=== PATIENT | female | born 1960 | race Hispanic/Latino ===

== ENCOUNTER 2018-03-02 06:49 | Observation (INO) | payer BC ==
--- NOTE | 2018-03-02 07:36 | ED PDOC ---
Upper Extremity Pain/Injury Time Seen by Provider: 03/02/18 07:09 Chief Complaint (Nursing): Upper Extremity Problem/Injury Chief Complaint (Provider): Upper Extremity Problem/Injury History Per: Patient History/Exam Limitations: no limitations Onset/Duration Of Symptoms: Other (today morning ) Current Symptoms Are (Timing): Still Present Exacerbating Factor(s): Movement Additional Complaint(s): Salome Cooley is a 58 year old female with a past medical history of hyperthyroidism and sinusitis, who presents to the emergency department after sustaining a fall on her outstretched left hand while walking this morning. Patient says she has pain to her left wrist and proximal hand that increases with movement. Patient is right hand dominant and denies any head or neck injuries, numbness, or weakness. PMD: Bree Harding Past Medical History Reviewed: Historical Data, Nursing Documentation, Vital Signs Vital Signs: Last Vital Signs Temp 97.4 F L 03/02/18 07:10 Pulse 86 03/02/18 07:10 Resp 18 03/02/18 07:10 BP 115/81 03/02/18 07:10 Pulse Ox 96 03/02/18 07:10 - Medical History PMH: Hyperthyroidism Other PMH: Sinusitis - Surgical History Surgical History: Appendectomy, Cholecystectomy, Tonsillectomy - Family History Family History: States: Unknown Family Hx - Home Medications Home Medications: Ambulatory Orders Medication Instructions Recorded Cholecalciferol (Vitamin D3) 2,000 unit PO DAILY 03/02/18 [Vitamin D3] Cyanocobalamin [Vitamin B12 1000 1 tab PO .2X/WK 03/02/18 mcg Tab] Lansoprazole [Prevacid] 30 mg PO DAILY PRN 03/02/18 Multivitamin [Multi-Vitamin Daily] 1 tab PO DAILY 03/02/18 Prasterone (Dhea) [Dhea] 1 cap PO DAILY 03/02/18 Thyroid [[place] Thyroid] 60 mg PO DAILY 03/02/18 Turmeric Root Extract [Turmeric] 1 cap PO DAILY 03/02/18 - Allergies Allergies/Adverse Reactions: Allergies Allergy/AdvReac Type Severity Reaction Status Date / Time doxycycline Allergy RASH Verified 03/02/18 07:10 tetracycline Allergy RASH Verified 03/02/18 07:10 Review of Systems ROS Statement: Except As Marked, All Systems Reviewed And Found Negative Musculoskeletal: Positive for: Hand Pain (Left hand and wrist pain) Neurological: Negative for: Weakness, Numbness Physical Exam - Reviewed Nursing Documentation Reviewed: Yes Vital Signs Reviewed: Yes - Physical Exam Appears: Positive for: Non-toxic, No Acute Distress Head Exam: Positive for: ATRAUMATIC, NORMOCEPHALIC Neck: Positive for: Normal, Painless ROM, Supple Respiratory: Positive for: Normal Breath Sounds. Negative for: Respiratory Distress Extremity: Positive for: Normal ROM (of lower extremities ), Tenderness (left wrist tenderess), Swelling (left wrist), Other (left shoulder and elbow non tender) Neurologic/Psych: Positive for: Alert, Oriented (x3). Negative for: Motor/Sensory Deficits - Laboratory Results Result Diagrams: 03/02/18 09:15 03/02/18 09:15 - ECG ECG: Positive for: Interpreted By Ga ECG Rhythm: Positive for: Sinus Bradycardia, Nonspecific Changes Rate: 59 O2 Sat by Pulse Oximetry: 96 (RA) Pulse Ox Interpretation: Normal - Radiology X-Ray: Interpreted by Ga X-Ray Interpretation: No Acute Disease (CXR) Medical Decision Making Medical Decision Making: Initial Time: 07:14 Initial Impression: Foosh fall on outstretched hand Initial Plan: Work up for traumatic foosh fall on outstretched hand and initiate pain control --Toradol 15 mg IM --Left hand and wrist X-ray --Chest X-ray Time: 11:22 Left hand x-ray FINDINGS: BONES: Comminuted fracture of the distal radius is appreciate with impaction. The fracture appears articular. No dislocation or subluxation. Transverse fracture through the ulnar styloid is appreciated, essentially nondisplaced. JOINTS: [id number] degenerative changes seen throughout the radiocarpal, carpal carpal and metacarpal phalangeal joints diffusely. SOFT TISSUES: Normal. OTHER FINDINGS: None. IMPRESSION: Left hand fracture identified. Comminuted fractures of the distal radius and ulna are identified. Time: 11:25 Left wrist X-ray FINDINGS: BONES: Comminuted articular fracture distal radius with volar angulation. Nondisplaced ulnar styloid fracture. Carpal bones appear intact nevertheless without fracture including the navicular bone. No destructive bony lesion appreciated. Local soft tissue edema appears moderate at the fracture sites. No subluxation or dislocation. JOINTS: As above. SOFT TISSUES: As above. OTHER FINDINGS: None. IMPRESSION: Comminuted articular fracture with volar angulation of the distal left radius without dislocation. No carpal bone fracture appreciated. Ulnar styloid fracture nondisplaced. Time: 11:32 Chest X-ray FINDINGS: LUNGS: No active pulmonary disease. PLEURA: No significant pleural effusion identified, no pneumothorax apparent. CARDIOVASCULAR: No aortic atherosclerotic calcification present. Normal cardiac size. No pulmonary vascular congestion. OSSEOUS STRUCTURES: No significant abnormalities. VISUALIZED UPPER ABDOMEN: Normal. OTHER FINDINGS: None. IMPRESSION: No acute cardiopulmonary disease appreciated. XRays wrist/ hand read by me as comminuted distal radius fracture Patient adamantly requested orthopedist who has office in [place] as she does not drive. Dr Okeefe contacted, he saw patient in ED and he states will need ORIF. Volar splint placed by tech confirmed by Preop labs, EKG, CXR ordered Admit Obs Dr Bradley Newell Attestation: Documented by Phil Lemos, acting as a scribe for Chin Nam III, DO. Provider Scribe Attestation: All medical record entries made by the Scribe were at my direction and personally dictated by me. I have reviewed the chart and agree that the record accurately reflects my personal performance of the history, physical exam, me dical decision making, and the department course for this patient. I have also personally directed, reviewed, and agree with the discharge instructions and disposition. Disposition - Disposition Condition: FAIR
[2018-03-02 10:01] LABS: BASO % 0.3 % (0.0-2.0); EOS # 0.1 K/uL (0.0-0.7); EOS % 0.7 % (0.0-4.0); LYMPH # 1.3 K/uL (1.0-4.3); LYMPH % 15.1 % (20.0-40.0); MEAN CELL VOLUME 93.1 fl (81.0-99.0); MEAN CORPUSCULAR HGB CONC 33.3 g/dL (33.0-37.0); MEAN PLATELET VOLUME 9.3 fl (7.2-11.7); MONO # 0.5 K/uL (0.0-0.8); MONO % 5.4 % (0.0-10.0); NEUT # 6.6 K/uL (1.8-7.0); NEUT % 78.5 % (50.0-75.0); NRBC % 0.1 % (0.0-0.0); RBC 4.84 Mil/uL (3.80-5.20); RED CELL DISTRIBUTION WIDTH 13.4 % (11.5-14.5); WHITE BLOOD COUNT 8.4 K/uL (4.8-10.8)
[2018-03-02 10:12] LABS: INR 0.9
[2018-03-02 10:13] LABS: ALB/GLOB RATIO 1.1 (1.0-2.1); ALBUMIN 4.3 g/dL (3.5-5.0); ALT/SGPT 28 U/L (9-52); AST/SGOT 25 U/L (14-36); BLOOD UREA NITROGEN 14 mg/dl (7-17); CALCIUM 9.7 mg/dL (8.4-10.2); GFR NON-AFRICAN AMERICAN > 60
[2018-03-02 10:15] LABS: PARTIAL THROMBOPLASTIN TIME 29.2 Seconds (25.6-37.1)
--- NOTE | 2018-03-02 11:08 | CARD ---
APPROVED REPORT Date of service: 03/02/2018 EKG Measurement Heart [id number] <Conclusion> Sinus bradycardia Minimal voltage criteria for LVH, may be normal variant Borderline ECG
--- NOTE | 2018-03-02 11:12 | CP.PCM.HP ---
Addendum entered and electronically signed by Lillian Britton DPM 03/02/18 16:37: Patient is medically optimized for procedure as planned. Original Note: <Lillian Britton - Last Filed: 03/02/18 13:11> History of Present Illness - History of Present Illness History of Present Illness: CC: painful left wrist and left hand due to fall HPI: 58 y/o female patient with PMHx of hypothyroidism and hyperlipidemia was seen and evaluated at bedside due to a fracture of the left wrist. Patient reports she was walking at 6:30 AM this morning, tripped and fell in the dark. Patient denies any LOC, dizziness or syncopal episodes. Patient complains of pain to her left arm. Patient denies any other complaints. Patient denies fever, nausea, vomiting, shortness of breath, numbness, weakness, tingling, chest pain, headache or dizziness. PMD: Bree Harding PMHx: Hypothyroidism, HLD, Sinusitis PSHx: Appendectomy, Cholecystectomy (1978), Hysterectomy (2007), Tonsillectomy, Multiple Sinus surgeries Medications: Vitamins, Lansoprazole, Prasterone, [place] Thyroid Family History: Father (DMII, HTN, Throat cancer), Mother (Breast Cancer) Allergies: Doxycycline and Tetracycline (hives) Social History: ETOH use socially, denies tobacco use or other illicit drug use ED Course: EKG: sinus bradycardia, minimal voltage criteria for LVH, CXR: no acute cardiopulmonary disease appreciated as per final read CBC/BMP: 8.4>15.0/45.1<301, 142/4.5/104/28/14/0.8<102 Pain Controlled: Torafol 15 mg IM Left Wrist placed in Volar Splint Present on Admission - Present on Admission Any Indicators Present on Admission: No History of DVT/PE: No History of Uncontrolled Diabetes: No Urinary Catheter: No Decubitus Ulcer Present: No Review of Systems - Constitutional Constitutional: absent: Chills, Fever, Weakness - EENT Eyes: absent: Blurred Vision, Change in Vision, Loss of Vision Nose/Mouth/Throat: absent: Nasal Discharge, Sinus Pain - Cardiovascular Cardiovascular: absent: Chest Pain, Chest Pain at Rest, Chest Pain with Activit y, Dyspnea on Exertion - Respiratory Respiratory: absent: Cough, Dyspnea - Gastrointestinal Gastrointestinal: absent: Abdominal Pain, Nausea, Vomiting - Musculoskeletal Musculoskeletal: Limited Range of Motion. absent: Numbness, Tingling Additional comments: of the Left wrist due to fracture/pain - Neurological Neurological: absent: Numbness, Tingling Past Patient History - Past Social History Smoking Status: Never Smoked - ENDOCRINE/METABOLIC Hx Hyperthyroidism: Yes - PSYCHIATRIC Hx Substance Use: No - SURGICAL HISTORY Hx Appendectomy: Yes Hx Cholecystectomy: Yes Hx Tonsillectomy: Yes - ANESTHESIA Hx Anesthesia: Yes Hx Anesthesia Reactions: No Meds Allergies/Adverse Reactions: Allergies Allergy/AdvReac Type Severity Reaction Status Date / Time doxycycline Allergy RASH Verified 03/02/18 07:10 tetracycline Allergy RASH Verified 03/02/18 07:10 Physical Exam - Constitutional Appears: Well, Non-toxic, No Acute Distress - Head Exam Head Exam: ATRAUMATIC, NORMOCEPHALIC - Eye Exam Eye Exam: Normal appearance - ENT Exam ENT Exam: Mucous Membranes Moist - Neck Exam Neck exam: Positive for: Full Rom, Normal Inspection. Negative for: L ymphadenopathy - Respiratory Exam Respiratory Exam: Clear to Auscultation Bilateral, NORMAL BREATHING PATTERN. absent: Rales, Rhonchi, Wheezes - Cardiovascular Exam Cardiovascular Exam: Bradycardia, REGULAR RHYTHM - GI/Abdominal Exam GI & Abdominal Exam: Normal Bowel Sounds, Soft. absent: Firm, Guarding, Rigid, Tenderness - Extremities Exam Extremities exam: Positive for: normal capillary refill, tenderness Additional comments: Left wrist placed in a Volar Splint, limited range of motion due to guarding - Back Exam Back exam: absent: CVA tenderness (L), CVA tenderness (R) - Neurological Exam Neurological exam: Alert, CN II-XII Intact, Oriented x3 - Psychiatric Exam Psychiatric exam: Normal Affect, Normal Mood - Skin Skin Exam: Normal Color Results - Vital Signs Recent Vital Signs: Last Vital Signs Temp 97.4 F L 03/02/18 07:10 Pulse 59 L 03/02/18 10:45 Resp 18 03/02/18 07:10 BP 115/81 03/02/18 07:10 Pulse Ox 96 03/02/18 10:45 - Labs Result Diagrams: 03/02/18 09:15 03/02/18 09:15 Labs: Laboratory Results - last 24 hr 03/02/18 03/02/18 03/02/18 09:15 09:15 09:15 WBC 8.4 RBC 4.84 Hgb 15.0 Hct 45.1 MCV 93.1 MCH 31.0 MCHC 33.3 RDW 13.4 Plt Count 301 MPV 9.3 Neut % (Auto) 78.5 H Lymph % (Auto) 15.1 L [place] % (Auto) 5.4 Eos % (Auto) 0.7 Baso % (Auto) 0.3 Neut # (Auto) 6.6 Lymph # (Auto) 1.3 [place] # (Auto) 0.5 Eos # (Auto) 0.1 Baso # (Auto) 0.0 INR 0.9 APTT 29.2 Sodium 142 Potassium 4.5 Chloride 104 Carbon Dioxide 28 Anion Gap 15 BUN 14 Creatinine 0.8 Est GFR ( Amer) > 60 Est GFR (Non-Af Amer) > 60 Random Glucose 102 Calcium 9.7 Total Bilirubin 0.5 AST 25 ALT 28 Alkaline Phosphatase 89 Total Protein 8.0 Albumin 4.3 Globulin 3.7 Albumin/Globulin Ratio 1.1 Assessment & Plan - Assessment and Plan (Free Text) Assessment: 58 y/o female patient with PMHx of hyperthyroidism and hyperlipidemia was seen and evaluated at bedside due to a fracture of the left wrist. Patient reports she was walking at 6:30 AM this morning, tripped and fell in the dark. Patient will be admitted for observation and will be taken to the OR on 03/03/18 for Lef t wrist open reduction and internal fixation Plan: 1) Left Wrist Fracture with surgery scheduled for 03/03/18 - Left Wrist X-ray- comminuted articular fracture with volar angulation of the distal left radius without dislocation, no carpal bone fracture, ulnar styloid fracture displaced - EKG: sinus bradycardia, minimal voltage criteria for LVH - CXR: no acute cardiopulmonary disease appreciated as per final read - Pain Control - F/u PT/OT- recommendations appreciated - NPO Order placed for after midnight - F/u Coags 2) Hypothyroidism - continue home regimen - F/u TSH levels 3) DVT Prophylaxis - SCDs for now 4) Diet - Regular Diet - NPO placed for after midnight due to surgery in AM - Date & Time Date: 03/02/18 Time: 12:06 <Mojgan Huerta - Last Filed: 03/03/18 13:04> Results - Vital Signs Recent Vital Signs: Last Vital Signs Temp 98.9 F 03/03/18 11:33 Pulse 73 03/03/18 11:33 Resp 18 03/03/18 11:33 BP 133/85 03/03/18 11:33 Pulse Ox 97 03/03/18 11:33 - Labs Result Diagrams: 03/03/18 05:45 03/02/18 09:15 Labs: Laboratory Results - last 24 hr 03/02/18 03/02/18 03/03/18 09:15 09:15 05:45 WBC 7.8 RBC 4.70 Hgb 14.6 Hct 43.8 MCV 93.1 MCH 31.0 MCHC 33.3 RDW 13.8 Plt Count 288 PT 9.8 TSH 3rd Generation 1.20 Attending/Attestation - Attestation I have personally seen and examined this patient.: Yes I have fully participated in the care of the patient.: Yes I have reviewed all pertinent clinical information: Yes Notes (Text): 03/03/18 13:01 Seen, examined, and discussed with resident. Agree with findings and plan as above. Patient to be admitted for L comminuted wrist fracture for OR per orthopedic surgery. Patient is medically stable for surgery, low risk for low risk procedure.
[2018-03-02] MEDS ORDERED: Oxycodone/Acetaminophen 5/325 mg Tab PO PRN ×3 (11:24→18:15)
--- NOTE | 2018-03-02 11:26 | RAD ---
PROCEDURE: Left Hand Radiographs. HISTORY: FOOSH COMPARISON: None. FINDINGS: BONES: Comminuted fracture of the distal radius is appreciate with impaction. The fracture appears articular. No dislocation or subluxation. Transverse fracture through the ulnar styloid is appreciated, essentially nondisplaced. JOINTS: [id number] degenerative changes seen throughout the radiocarpal, carpal carpal and metacarpal phalangeal joints diffusely. SOFT TISSUES: Normal. OTHER FINDINGS: None. IMPRESSION: Left hand fracture identified. Comminuted fractures of the distal radius and ulna are identified.
--- NOTE | 2018-03-02 11:30 | RAD ---
Date of service: 03/02/2018 PROCEDURE: Left Wrist Radiographs. HISTORY: FOOSH COMPARISON: None. FINDINGS: BONES: Comminuted articular fracture distal radius with volar angulation. Nondisplaced ulnar styloid fracture. Carpal bones appear intact nevertheless without fracture including the navicular bone. No destructive bony lesion appreciated. Local soft tissue edema appears moderate at the fracture sites. No subluxation or dislocation. JOINTS: As above. SOFT TISSUES: As above. OTHER FINDINGS: None. IMPRESSION: Comminuted articular fracture with volar angulation of the distal left radius without dislocation. No carpal bone fracture appreciated. Ulnar styloid fracture nondisplaced.
--- NOTE | 2018-03-02 11:36 | RAD ---
Date of service: 03/02/2018 HISTORY: preop COMPARISON: No prior. FINDINGS: LUNGS: No active pulmonary disease. PLEURA: No significant pleural effusion identified, no pneumothorax apparent. CARDIOVASCULAR: No aortic atherosclerotic calcification present. Normal cardiac size. No pulmonary vascular congestion. OSSEOUS STRUCTURES: No significant abnormalities. VISUALIZED UPPER ABDOMEN: Normal. OTHER FINDINGS: None. IMPRESSION: No acute cardiopulmonary disease appreciated.
[2018-03-02] MEDS ORDERED: Pantoprazole 40 mg EC Tab PO PRN (12:46)
[2018-03-02] MEDS ORDERED: THYROID 30 MG TAB PO SCH (13:00)
[2018-03-02] MEDS ORDERED: Cholecalciferol 1,000 INTLU TAB PO SCH (13:00)
[2018-03-02] MEDS ORDERED: Multivitamin With Minerals Tab PO SCH (13:00)
[2018-03-02] MEDS ORDERED: PRASTERONE PO SCH (13:00)
[2018-03-02 13:39] LABS: PROTHROMBIN TIME 9.8 Seconds (9.8-13.1)
[2018-03-03 05:57] LABS: HEMOGLOBIN 14.6 g/dL (12.0-16.0); MEAN CELL VOLUME 93.1 fl (81.0-99.0); MEAN CORPUSCULAR HGB CONC 33.3 g/dL (33.0-37.0); RBC 4.7 Mil/uL (3.80-5.20); RED CELL DISTRIBUTION WIDTH 13.8 % (11.5-14.5); WHITE BLOOD COUNT 7.8 K/uL (4.8-10.8)
[2018-03-03] MEDS ORDERED: THYROID 30 MG TAB PO SCH (06:00)
[2018-03-03] MEDS ORDERED: Lidocaine 2% Jelly (5 ml) TOP ONE (07:35)
[2018-03-03] MEDS ORDERED: Midazolam 2 MG/2 ML VIAL ONE (07:35)
[2018-03-03] MEDS ORDERED: Propofol 10 mg/ml Inj (20 ML) ONE (07:35)
[2018-03-03] MEDS ORDERED: Lidocaine 1% 5ml Abboject ONE (07:35)
[2018-03-03] MEDS ORDERED: Ropivacaine 0.5% 30ML IV ONE (07:45)
[2018-03-03] MEDS ORDERED: Succinylcholine 200 mg/10 ml Inj IV ONE (08:04)
[2018-03-03] MEDS ORDERED: Lidocaine 4% (Laryng-O-Jet) Kit MM ONE (08:05)
[2018-03-03] MEDS ORDERED: Lactated Ringer's 1,000 ML IV ONE (08:05)
--- NOTE | 2018-03-03 08:33 | CP.PCM.PN ---
Objective - Vital Signs/Intake and Output Vital Signs (last 24 hours): Temp Pulse Resp BP Pulse Ox 98.7 F 71 16 126/78 95 03/03/18 05:51 03/03/18 05:51 03/03/18 05:51 03/03/18 05:51 03/03/18 05:51 - Medications Medications: Current Medications Acetaminophen (Tylenol 325mg Tab) 650 mg PO Q6 PRN PRN Reason: Pain, Mild (1-3) Cholecalciferol (Vitamin D) 2,000 intlu PO DAILY [facility] Last Admin: 03/02/18 14:42 Dose: 2,000 intlu Cyanocobalamin (Vitamin B12 1000 Mcg Tab) 1,000 mcg PO .2X/WK [facility] Home Med (Prasterone (Dhea) [Dhea]) 1 cap PO DAILY [facility] Multivitamins/Minerals (Therapeutic-M Tab) 1 tab PO DAILY [facility] Last Admin: 03/02/18 14:43 Dose: 1 tab Oxycodone/Acetaminophen (Percocet 5/325 Mg Tab) 2 tab PO Q6 PRN PRN Reason: Pain, severe (8-10) Stop: 03/05/18 18:15 Oxycodone/Acetaminophen (Percocet 5/325 Mg Tab) 1 tab PO Q6 PRN PRN Reason: Pain, moderate (4-7) Stop: 03/05/18 16:01 Pantoprazole Sodium (Protonix Ec Tab) 40 mg PO DAILY PRN PRN Reason: Heartburn Thyroid ([place] Thyroid) 60 mg PO DAILY@0600 [facility] Last Admin: 03/03/18 06:07 Dose: 60 mg - Labs Labs: 03/03/18 05:45 03/02/18 09:15 PT 9.8 Seconds (9.8-13.1) 03/02/18 09:15 INR 0.9 03/02/18 09:15 APTT 29.2 Seconds (25.6-37.1) 03/02/18 09:15
[2018-03-03] MEDS ORDERED: Lactated Ringer's 1,000 ML IV SCH ×2 (09:45→10:00)
--- NOTE | 2018-03-03 09:48 | PCM.SURG1 ---
Surgeon's Initial Post Op Note - Surgeon's Notes Surgeon: Porfirio Okeefe MD Pelts Skinner: 1st assist Greta Eid MD, 2nd assist Shad Baig PA-C Type of Anesthesia: General Endo, Block Regional (Infra-clavicular) Anesthesia Administered By: Dr. Lopez Pre-Operative Diagnosis: Left distal radius fracture Operative Findings: Left comminuted intra-articular distal radius fracture Post-Operative Diagnosis: as above Operation Performed: Left distal radius fracture open reduction internal fixation Specimen/Specimens Removed: none Estimated Blood Loss: EBL {In ML}: 5 Blood Products Given: N/A Drains Used: No Drains Post-Op Condition: Good Date of Surgery/Procedure: 03/03/18 Time of Surgery/Procedure: 08:30
--- NOTE | 2018-03-03 09:57 | PCM.ANESB4 ---
Infraclavicular Block - Femoral Nerve Block Date of Procedure: 03/03/18 Anesthesiologist: Dr. Lopez Pre-Procedure Diagnosis: S/P ORIF left distal radial fracture Post-Procedure Diagnosis: S/P ORIF left distal radial fracture Procedure Performed: Brachial Plexus at the Infraclavicular area Left - Procedure Infraclavicular Block: The procedure was explained to the patient that it is for the post-operative pain management. Consent was obtained after a thorough discussion with the patient regarding the benefits and possible complications of local anesthetic block of the brachial plexus at the infraclavicular area. The patient was brought to the operating room and standard monitors were applied. Time-out was held with the circulating nurse to confirm the correct surgery and the appropriate block. After the surgery while still under general anesthesia, patient's head was gently rotated away from the operative left shoulder and the area medial to the coracoid process and inferior to the clavicle was carefully palpated. The ultrasound transducer was then applied to the skin in the transverse plane and the brachial plexus was visualized surrounding the axillary artery and deep to the pectoralis major and minor muscles. After thorough identification, this area was prepped with Chloraprep solution. At this point, a #21 gauge Stimuplex 4-inch needle was inserted cephalad to the ultrasound transducer and inferior to the clavicle in-plane towards the posterior aspect of the axillary artery. Needle advancement was performed carefu lly under ultrasound visualization. After repeated negative aspiration, 5cc of 0.5% Ropivacaine was injected and this was followed with 15cc of 0.5% Ropivacaine. Under ultrasound guidance the local anesthetics were observed surrounding the cords of the brachial plexus. The needle was removed intact and sterile dressing was applied. The patient had stable vital signs, was awaken from anesthesia and in no apparent distress. The patient tolerated the infraclavicular block of the brachial plexus well with stable vital signs was transported to PACU.
[2018-03-03] MEDS ORDERED: HYDROmorphone 0.5 mg/0.5 ml ISec IVP PRN (09:58)
[2018-03-03 10:12] VITALS: RESP 18
--- NOTE | 2018-03-03 10:45 | CP.PCM.DIS ---
Addendum entered and electronically signed by Lillian Britton DPM 03/03/18 12:01: Patient was seen and evaluated post operative and remained hemodynamically stable. Patient tolerated procedure well. Original Note: <Lillian Britton - Last Filed: 03/03/18 10:40> Provider - Provider Date of Admission: 03/02/18 12:15 Attending physician: Mojgan Huerta DO Primary care physician: Dr. Harding Consults: Orthopedic Consult- Dr. Eid Time Spent in preparation of Discharge (in minutes): 30 Diagnosis - Discharge Diagnosis (1) Left wrist fracture Status: Acute Hospital Course - Lab Results Lab Results: Most Recent Lab Values WBC 7.8 K/uL (4.8-10.8) 03/03/18 05:45 RBC 4.70 Mil/uL (3.80-5.20) 03/03/18 05:45 Hgb 14.6 g/dL (12.0-16.0) 03/03/18 05:45 Hct 43.8 % (34.0-47.0) 03/03/18 05:45 MCV 93.1 fl (81.0-99.0) 03/03/18 05:45 MCH 31.0 pg (27.0-31.0) 03/03/18 05:45 MCHC 33.3 g/dL (33.0-37.0) 03/03/18 05:45 RDW 13.8 % (11.5-14.5) 03/03/18 05:45 Plt Count 288 K/uL (130-400) 03/03/18 05:45 MPV 9.3 fl (7.2-11.7) 03/02/18 09:15 Neut % (Auto) 78.5 % (50.0-75.0) H 03/02/18 09:15 Lymph % (Auto) 15.1 % (20.0-40.0) L 03/02/18 09:15 [place] % (Auto) 5.4 % (0.0-10.0) 03/02/18 09:15 Eos % (Auto) 0.7 % (0.0-4.0) 03/02/18 09:15 Baso % (Auto) 0.3 % (0.0-2.0) 03/02/18 09:15 Neut # (Auto) 6.6 K/uL (1.8-7.0) 03/02/18 09:15 Lymph # (Auto) 1.3 K/uL (1.0-4.3) 03/02/18 09:15 [place] # (Auto) 0.5 K/uL (0.0-0.8) 03/02/18 09:15 Eos # (Auto) 0.1 K/uL (0.0-0.7) 03/02/18 09:15 Baso # (Auto) 0.0 K/uL (0.0-0.2) 03/02/18 09:15 PT 9.8 Seconds (9.8-13.1) 03/02/18 09:15 INR 0.9 03/02/18 09:15 APTT 29.2 Seconds (25.6-37.1) 03/02/18 09:15 Sodium 142 mmol/l (132-148) 03/02/18 09:15 Potassium 4.5 MMOL/L (3.6-5.0) 03/02/18 09:15 Chloride 104 mmol/L (98-107) 03/02/18 09:15 Carbon Dioxide 28 mmol/L (22-30) 03/02/18 09:15 Anion Gap 15 (10-20) 03/02/18 09:15 BUN 14 mg/dl (7-17) 03/02/18 09:15 Creatinine 0.8 mg/dl (0.7-1.2) 03/02/18 09:15 Est GFR ( Amer) > 60 03/02/18 09:15 Est GFR (Non-Af Amer) > 60 03/02/18 09:15 Random Glucose 102 mg/dL (65-105) 03/02/18 09:15 Calcium 9.7 mg/dL (8.4-10.2) 03/02/18 09:15 Total Bilirubin 0.5 mg/dl (0.2-1.3) 03/02/18 09:15 AST 25 U/L (14-36) 03/02/18 09:15 ALT 28 U/L (9-52) 03/02/18 09:15 Alkaline Phosphatase 89 U/L (38-126) 03/02/18 09:15 Total Protein 8.0 G/DL (6.3-8.2) 03/02/18 09:15 Albumin 4.3 g/dL (3.5-5.0) 03/02/18 09:15 Globulin 3.7 gm/dL (2.2-3.9) 03/02/18 09:15 Albumin/Globulin Ratio 1.1 (1.0-2.1) 03/02/18 09:15 TSH 3rd Generation 1.20 mIU/ML (0.46-4.68) 03/02/18 09:15 - Hospital Course Hospital Course: HPI: 58 y/o female patient with PMHx of hypothyroidism and hyperlipidemia was seen and evaluated at bedside due to a fracture of the left wrist. Patient reports she was walking at 6:30 AM on 03/02/18. Patient denies any LOC, dizziness or syncopal episodes. Patient complains of pain to her left arm. Patient denies any other complaints. Patient denies fever, nausea, vomiting, shortness of breath, numbness, weakness, tingling, chest pain, headache or dizziness. Patient was taken to the OR with Dr. Eid, and had Left distal radius fracture open reduction internal fixation 1) Left Wrist Fracture with surgery scheduled for 03/03/18 - Left Wrist X-ray- comminuted articular fracture with volar angulation of the distal left radius without dislocation, no carpal bone fracture, ulnar styloid fracture displaced - EKG: sinus bradycardia, minimal voltage criteria for LVH - CXR: no acute cardiopulmonary disease appreciated as per final read - Pain Control as per ortho - PT/OT- recommendations were appreciate - Patient tolerated procedure well, and will follow up with Dr. Eid/Dr. Okeefe in office 2) Hypothyroidism - continue home regimen - TSH levels- 1.20 3) DVT Prophylaxis - SCDs for now - Date & Time of H&P Date of H&P: 03/03/18 Time of H&P: 10:42 Discharge Exam - Head Exam Head Exam: ATRAUMATIC, NORMOCEPHALIC - Eye Exam Eye Exam: Normal appearance - ENT Exam ENT Exam: Mucous Membranes Moist - Neck Exam Neck exam: Full Rom - Respiratory Exam Respiratory Exam: Clear to PA & Lateral, NORMAL BREATHING PATTERN. absent: Rales, Rhonchi, Wheezes - Cardiovascular Exam Cardiovascular Exam: REGULAR RHYTHM, RRR, +S1, +S2. absent: JVD - GI/Abdominal Exam GI & Abdominal Exam: Normal Bowel Sounds. absent: Distended, Firm, Guarding - Extremities Exam Extremities exam: tenderness Additional comments: Left Upper Extremity in dressing, no drain noted - Back Exam Back exam: absent: CVA tenderness (L), CVA tenderness (R) - Neurological Exam Neurological exam: Alert, Oriented x3 - Psychiatric Exam Psychiatric exam: Normal Affect, Normal Mood - Skin Skin Exam: Normal Color Discharge Plan - Discharge Medications Prescriptions: RX: oxyCODONE/Acetaminophen [Percocet 5/325 mg Tab] 1 tab PO Q6 PRN #30 tab PRN Reason: Pain, Moderate (4-7) - Follow Up Plan Condition: FAIR Disposition: HOME/ ROUTINE Instructions: How to Wash Your Hands Properly, Preventing Falls in the Older Adult, Wrist Fracture (DC) Additional Instructions: Patient to follow up with Dr. Eid/Dr. Okeefe within 1 week Referrals: Greta Eid MD [Staff Provider] - <Mojgan Huerta - Last Filed: 03/03/18 13:18> Provider - Provider Date of Admission: 03/02/18 12:15 Attending physician: Mojgan Huerta DO Hospital Course - Lab Results Lab Results: Most Recent Lab Values WBC 7.8 K/uL (4.8-10.8) 03/03/18 05:45 RBC 4.70 Mil/uL (3.80-5.20) 03/03/18 05:45 Hgb 14.6 g/dL (12.0-16.0) 03/03/18 05:45 Hct 43.8 % (34.0-47.0) 03/03/18 05:45 MCV 93.1 fl (81.0-99.0) 03/03/18 05:45 MCH 31.0 pg (27.0-31.0) 03/03/18 05:45 MCHC 33.3 g/dL (33.0-37.0) 03/03/18 05:45 RDW 13.8 % (11.5-14.5) 03/03/18 05:45 Plt Count 288 K/uL (130-400) 03/03/18 05:45 MPV 9.3 fl (7.2-11.7) 03/02/18 09:15 Neut % (Auto) 78.5 % (50.0-75.0) H 03/02/18 09:15 Lymph % (Auto) 15.1 % (20.0-40.0) L 03/02/18 09:15 [place] % (Auto) 5.4 % (0.0-10.0) 03/02/18 09:15 Eos % (Auto) 0.7 % (0.0-4.0) 03/02/18 09:15 Baso % (Auto) 0.3 % (0.0-2.0) 03/02/18 09:15 Neut # (Auto) 6.6 K/uL (1.8-7.0) 03/02/18 09:15 Lymph # (Auto) 1.3 K/uL (1.0-4.3) 03/02/18 09:15 [place] # (Auto) 0.5 K/uL (0.0-0.8) 03/02/18 09:15 Eos # (Auto) 0.1 K/uL (0.0-0.7) 03/02/18 09:15 Baso # (Auto) 0.0 K/uL (0.0-0.2) 03/02/18 09:15 PT 9.8 Seconds (9.8-13.1) 03/02/18 09:15 INR 0.9 03/02/18 09:15 APTT 29.2 Seconds (25.6-37.1) 03/02/18 09:15 Sodium 142 mmol/l (132-148) 03/02/18 09:15 Potassium 4.5 MMOL/L (3.6-5.0) 03/02/18 09:15 Chloride 104 mmol/L (98-107) 03/02/18 09:15 Carbon Dioxide 28 mmol/L (22-30) 03/02/18 09:15 Anion Gap 15 (10-20) 03/02/18 09:15 BUN 14 mg/dl (7-17) 03/02/18 09:15 Creatinine 0.8 mg/dl (0.7-1.2) 03/02/18 09:15 Est GFR ( Amer) > 60 03/02/18 09:15 Est GFR (Non-Af Amer) > 60 10/29/18 09:15 Random Glucose 102 mg/dL (65-105) 03/02/18 09:15 Calcium 9.7 mg/dL (8.4-10.2) 03/02/18 09:15 Total Bilirubin 0.5 mg/dl (0.2-1.3) 03/02/18 09:15 AST 25 U/L (14-36) 03/02/18 09:15 ALT 28 U/L (9-52) 03/02/18 09:15 Alkaline Phosphatase 89 U/L (38-126) 03/02/18 09:15 Total Protein 8.0 G/DL (6.3-8.2) 03/02/18 09:15 Albumin 4.3 g/dL (3.5-5.0) 03/02/18 09:15 Globulin 3.7 gm/dL (2.2-3.9) 03/02/18 09:15 Albumin/Globulin Ratio 1.1 (1.0-2.1) 03/02/18 09:15 TSH 3rd Generation 1.20 mIU/ML (0.46-4.68) 03/02/18 09:15 Attending/Attestation - Attestation I have personally seen and examined this patient.: Yes I have fully participated in the care of the patient.: Yes I have reviewed all pertinent clinical information, including history, physical exam and plan: Yes Notes (Text): 03/03/18 13:18 Agree with findings and plan as above. Patient tolerate the procedure well, and is stable for discharge home with follow up surgery and pcp in one week.
--- NOTE | 2018-03-03 11:10 | RAD ---
Date of service: 03/03/2018 PROCEDURE: Left Wrist Radiographs. HISTORY: S/P L WRIST ORIF COMPARISON: 03/02/2018 FINDINGS: BONES: Cast obscures fine bony details. Status post reduction and internal fixation of acute impacted nondisplaced transverse intra-articular fracture in the distal radius with a metallic plate and screws. No acute complications. Redemonstration of acute transverse nondisplaced fracture in the styloid process of ulna. JOINTS: Normal. No dislocation. SOFT TISSUES: Normal. OTHER FINDINGS: None. IMPRESSION: Status post open reduction and internal fixation of acute transverse impacted nondisplaced intra-articular fracture in the distal radius with metallic plate and screws. No acute complications. No other interval change.
[2018-03-03 11:33] VITALS: BP 133/85; PULSE 73; TEMP 98.9; O2SAT 97
--- NOTE | 2018-03-04 00:52 | OP ---
PROCEDURE DATE: 03/03/2018 SURGEON: Porfirio Okeefe MD MAINTENANCE CLERK: Greta Eid MD PREOPERATIVE DIAGNOSIS: Displaced three-part intraarticular left distal radius fracture. POSTOPERATIVE DIAGNOSIS: Displaced three-part intraarticular left distal radius fracture. PROCEDURES: 1. Open reduction and internal fixation of three-part distal radius fracture using Synthes volar wrist plate, 38438. 2. Left distal radius bone debridement, 06121. BLOOD LOSS: Minimal. ANESTHESIA: General and postoperative left upper extremity block. COMPLICATIONS: None. DISPOSITION: Stable to recovery room. INDICATIONS: This is a right hand dominant female who presents to [facility] from a fall, landing on her left wrist. The patient presents with a displaced distal radius fracture and gross deformity of the wrist. She was indicated for the above procedure for anatomic reduction and fixation of her fracture. The patient was taken to Surgery for the above procedures. DESCRIPTION OF PROCEDURE: The patient was taken to the operating room and placed supine on the operating room table. After general anesthesia was given and prophylactic antibiotics, a well-padded non-sterile tourniquet was placed on the patient's left upper extremity. The entire extremity was then prepped and draped in a standard surgical fashion and time-out was performed. The proposed incision was marked out with a sterile marking pen. This was a longitudinal incision over the FCR tendon. An Esmarch bandage was used to exsanguinate the limb and tourniquet was inflated to 250 mmHg, and the Esmarch bandage was then removed. Incision was made through the skin only. All superficial veins were cauterized. Careful dissection was then carried down to the flexor carpi radialis sheath which was incised. The FCR tendon was then retracted ulnarly. The floor of the FCR sheath was then also incised as well. The flexor pollicis longus was retracted ulnarly and any small branches of the radial artery were cauterized. The pronator quadratus was then retracted in an L-shaped fashion. The fracture was then well visualized. There was comminution and three-part displacement of the distal radius fracture. There was also a significant volar Wyatt fracture fragment. Rongeurs were used to debride the bone hematoma and all nonviable tissue. The irrigation was used also for debridement of the bone, muscle and tendon tissues. Next, open reduction was performed. This included the use of a [place], placement of the distal fracture fragments back to its anatomic position provisionally with radial styloid Susan wire. After this, an appropriate size volar Synthes wrist plate was selected and applied to the wall of distal radius. It was temporarily transfixed with Susan wires. Image intensification revealed anatomic reduction of the distal radius and excellent placement of the plate in a sequential fashion. The proximal screws were placed in the volar plate in a standard AO fashion followed by locking pegs in each column of the distal radius plate. The pegs did not violate the intraarticular surface. No screws penetrated the joint. The patient had full passive range of motion of the wrist and elbow. Fluoroscopic images again confirmed well aligned anatomic distal radius with good placement of hardware. The tourniquet was deflated. The wound was irrigated with normal saline. The pronator quadratus was then repaired back to itself with 4-0 Vicryl sutures. Hemostasis was obtained. Skin was closed with 4-0 nylon interrupted sutures. Sterile dressing was applied consisting of and thumb spica plaster splint. The patient tolerated the procedure well and was returned to the recovery room in excellent condition. During the case, I was assisted by Dr. Greta Edi, a board-certified orthopedic surgeon. His assistance was needed and medically necessary to provide proper reduction and proper placement of the plate and provide increased intraoperative safety for the patient. Porfirio Okeefe MD
--- NOTE | 2018-03-04 01:55 | CON ---
DATE: 03/03/2018 REASON FOR CONSULTATION: Left wrist fracture. HISTORY OF PRESENT ILLNESS: A 58-year-old right-hand dominant female, who presents to [place] emergency room status post fall, landing on her left wrist. The patient was seen and examined in the emergency room complaining of left wrist pain. PHYSICAL EXAMINATION: EXTREMITIES: Left wrist, disclosed deformity of the distal radius, tenderness to palpation over the distal radius. The patient has normal sensation on the tips of her fingers, can make a full fist. Skin was intact. No tenderness over the elbow or shoulder. Neurovascularly intact. LABORATORY DATA: X-rays of the left wrist was seen and reviewed; AP, lateral, and oblique show displaced three-part intra-articular distal radius fracture with volar buttoned subluxation. ASSESSMENT: Left displaced distal radius fracture. PLAN: I discussed the above findings with the patient. I recommended surgery for open reduction and plate fixation of her fracture. The patient will be admitted to the hospital, undergo preoperative clearance, and agree for surgery. Risks and benefits of the procedure were explained. In the meantime, the patient was placed in the splint for support. Porfirio Okeefe MD
== END 2018-03-03 17:25 | disposition home or self-care (01) ==
LOC: H.ER 06:49 → H.ERHOLD 12:15 → H.PEDS 13:05
PROVIDERS: ADMIT Student in an Organized Health Care Education/Training Program; ATTEND Student in an Organized Health Care Education/Training Program
DX: S52.572A Other intraarticular fracture of lower end of left radius, initial encounter for closed fracture (principal); E03.9 Hypothyroidism, unspecified; E78.5 Hyperlipidemia, unspecified; W01.0XXA Fall on same level from slipping, tripping and stumbling without subsequent striking against object, initial encounter; Y93.01 Activity, walking, marching and hiking; Y92.009 Unspecified place in unspecified non-institutional (private) residence as the place of occurrence of the external cause
CPT/HCPCS: 25609; 36415; 64415; 71045; 73110; 73130; 80053; 84443; 85025; 85027; 85610; 85730; 93005; 96372; 99285; G0378; J0330; J0690; J1885; J2250; J2704; J2765; J3010; J7120